=== PATIENT | male | born 1945 | race Caucasian/White ===

== ENCOUNTER 2017-01-19 12:14 | Emergency (ER) | payer OTHER, BC ==
[~2017-01-19] VITALS: Ht 190.5 cm; Wt 90.1 kg
[~2017-01-19 12:14] MED LIST: ANTACID PO; ASPIR-LOW81 MG PO; ASPIRIN E.C.81 M1 PO; ASPIRIN EC325 MG PO; ASPIRIN81 M1 PO; ATORVASTATIN CA20 MG PO; CRESTOR10 MG PO; CRESTOR20 MG PO; DEXILANT60 MG PO; DOXYCYCLINE HY100 MG PO; Effient PO; HALFPRIN81 M1 PO; LIPOFEN150 MG PO; METOPROLOL TART25 MG PO; NEXIUM40 MG PO; NITROSTAT,NITR0.4 M1 SL; PLAVIX75 MG PO; ROBITUSSIN AC,T10 ML PO; Rolaids PO; TOPROL PO; Toprol XL PO; ZONATUSS150 MG PO
[2017-01-19] MEDS ORDERED: JANUVIA100 MG PO (13:06)
[2017-01-19 13:13] LABS: EOSINOPHIL (%) 2.7 % (0-5); EOSINOPHIL COUNT 0.2 K/uL (0-0.3); HEMATOCRIT 45.1 % (38.0-50.0); IMMATURE GRANULOCYTE (%) 0.2 % (0.0-0.7); INSTRUMENT ABS NEUTROPHIL CT 3.6 K/uL; MCH 31.6 PG (29.0-34.0); MCHC 34.6 G/DL (30.0-36.0); MCV 91.5 FL (86-99); MEAN PLAT.VOLUME 9.9 uM^3 (9.0-12.4); MONOCYTE (%) 8.5 % (3-12); MONOCYTE COUNT 0.5 K/uL (0-0.8); NEUTROPHIL (%) 57.5 % (45-76); NEUTROPHIL COUNT 3.6 K/uL (1.8-6.4); PLATELET COUNT 224 K/uL (156-360); RBC DIS.WIDTH-CV 11.2 % (11.8-14.6); RBC DIS.WIDTH-SD 37.8 % (39-53); RED BLOOD COUNT 4.93 M/uL (4.00-5.50); WHITE BLOOD COUNT 6.3 K/uL (4.1-10.2)
[2017-01-19 13:22] LABS: CHLORIDE 103 mEq/L (99-109); SODIUM 134 mEq/L (136-147)
[2017-01-19 13:24] LABS: GLUCOSE 111 mg/dL (70-99)
[2017-01-19 13:25] LABS: ANION GAP 9 MEQ/L (2-14)
[2017-01-19 13:28] LABS: GFR ESTIMATE (CALCULATED) > 59 mL/min/; UREA NITROGEN (BUN) 17 mg/dL (9-23)
[2017-01-19 13:34] LABS: TROP-I INTERPRETATION NEGATIVE; TROPONIN-I < 0.01 ng/mL (0.0-0.30)
[2017-01-19 15:27] LABS: TROP-I INTERPRETATION NEGATIVE; TROPONIN-I < 0.01 ng/mL (0.0-0.30)
[2017-01-19] MEDS ORDERED: PREDNISONE50 MG PO (15:43)
[2017-01-19] MEDS ORDERED: PROAIR HFA8.5 GM IH (15:43)
[2017-01-19] MEDS ORDERED: ZITHROMAX Z-PA250 MG PO (15:43)
[2017-01-19 16:14] VITALS: BP 123/83
== END 2017-01-19 16:23 | disposition home or self-care (01) ==
LOC: EME 12:14
PROVIDERS: Emergency Medicine
DX: J20.9 Acute bronchitis, unspecified (principal); I10 Essential (primary) hypertension; E78.5 Hyperlipidemia, unspecified; E11.9 Type 2 diabetes mellitus without complications; Z79.84 Long term (current) use of oral hypoglycemic drugs; K21.9 Gastro-esophageal reflux disease without esophagitis; I25.10 Atherosclerotic heart disease of native coronary artery without angina pectoris; I25.2 Old myocardial infarction; Z95.5 Presence of coronary angioplasty implant and graft; Z79.82 Long term (current) use of aspirin; Z79.02 Long term (current) use of antithrombotics/antiplatelets
CPT/HCPCS: 71010; 80048; 83880; 84484; 85025; 93005; 94640; 99281; 99284

== ENCOUNTER 2017-07-18 08:11 | Observation (INO) | payer OTHER, BC ==
[~2017-07-18] VITALS: Ht 190.5 cm; Wt 88.3 kg
[~2017-07-18 08:11] MED LIST changes: +FENOFIBRATE145 M1 PO; +JANUVIA100 MG PO; +PEPCID20 MG PO; +PREDNISONE50 MG PO; +PROAIR HFA8.5 GM IH; +ZITHROMAX Z-PA250 MG PO
[2017-07-18 09:09] LABS: MCH 31.9 PG (29.0-34.0); MCHC 35.1 G/DL (30.0-36.0); MCV 90.7 FL (86-99); MEAN PLAT.VOLUME 10.1 uM^3 (9.0-12.4); PLATELET COUNT 211 K/uL (156-360); RBC DIS.WIDTH-CV 11.3 % (11.8-14.6); RBC DIS.WIDTH-SD 37.7 % (39-53); RED BLOOD COUNT 5.18 M/uL (4.00-5.50); WHITE BLOOD COUNT 5.8 K/uL (4.1-10.2)
[2017-07-18 09:30] LABS: TROP-I INTERPRETATION NEGATIVE; TROPONIN-I < 0.01 ng/mL (0.0-0.30)
[2017-07-18 09:40] LABS: ANION GAP 9 MEQ/L (2-14); CHLORIDE 103 MEQ/L (99-109); GFR ESTIMATE (CALCULATED) > 59 mL/min/; GLUCOSE 121 mg/dL (70-99); SAMPLE HEMOLYSIS CHECK 0; SAMPLE ICTERIC CHECK 0; SAMPLE LIPEMIA CHECK 0; SODIUM 136 MEQ/L (136-147); UREA NITROGEN (BUN) 18 mg/dL (9-23)
[2017-07-18 13:37] VITALS: BP 158/86
[2017-07-18] MEDS ORDERED: GLIMEPIRIDE2 MG PO (14:30)
[2017-07-18] MEDS ORDERED: DUONEB 2.5-0.5 M3 ML AEROSOL (14:31)
[2017-07-18 16:07] LABS: TROP-I INTERPRETATION NEGATIVE; TROPONIN-I < 0.01 ng/mL (0.0-0.30)
[2017-07-18 16:12] VITALS: BP 147/87
[2017-07-18 19:53] VITALS: BP 130/77
[2017-07-18 22:12] LABS: TROP-I INTERPRETATION NEGATIVE; TROPONIN-I < 0.01 ng/mL (0.0-0.30)
[2017-07-19 00:17] VITALS: BP 137/67
[2017-07-19 03:46] VITALS: BP 144/79
[2017-07-19 08:04] VITALS: BP 124/83
[2017-07-19 10:59] VITALS: BP 143/89
== END 2017-07-19 15:08 | disposition home or self-care (01) ==
LOC: EME 08:11 → ENRESERV 11:58 → EDOF 11:59 → 5WEST 11:59 → EDOF 11:59 → ENRESERV 12:17 → 5WEST 13:25
PROVIDERS: Internal Medicine
DX: R07.9 Chest pain, unspecified (principal); I25.10 Atherosclerotic heart disease of native coronary artery without angina pectoris; Z95.5 Presence of coronary angioplasty implant and graft; I25.2 Old myocardial infarction; E78.5 Hyperlipidemia, unspecified; I10 Essential (primary) hypertension; R05 Cough; R06.00 Dyspnea, unspecified; K21.9 Gastro-esophageal reflux disease without esophagitis
CPT/HCPCS: 71020; 80048; 84484; 85027; 93005; 94640; 99202; 99281; 99284; G0378; J1650

== ENCOUNTER 2018-01-17 05:47 | Emergency (ER) | payer OTHER, BC ==
[~2018-01-17] VITALS: Ht 190.5 cm; Wt 89.9 kg
[~2018-01-17 05:47] MED LIST changes: +DUONEB 2.5-0.5 M3 ML AEROSOL; +GLIMEPIRIDE2 MG PO
[2018-01-17] MEDS ORDERED: FLEXERIL10 MG PO (06:37)
[2018-01-17] MEDS ORDERED: NAPROSYN500 MG PO ×2 (06:37→06:39)
[2018-01-17] MEDS ORDERED: MEDROL DOSEPAK4 MG PO (06:39)
[2018-01-17 06:55] VITALS: BP 147/84
== END 2018-01-17 06:57 | disposition home or self-care (01) ==
LOC: EME 05:47
DX: M54.5 Low back pain (principal); Z88.8 Allergy status to other drugs, medicaments and biological substances
CPT/HCPCS: 99281; 99283; J8540